=== PATIENT | female | born 1960 | race Caucasian/White ===

== ENCOUNTER 2019-04-09 04:09 | Inpatient (IN) | payer MEDICAID ==
[~2019-04-09] VITALS: Ht 167.6 cm; Wt 63.3 kg
[2019-04-09] VITALS (11 sets, daily range): BP systolic 120–137; BP diastolic 61–86
[2019-04-09 07:20] LABS: Eosinophils # (auto) 0 uL; Neutrophils # (auto) 8.8 uL
[2019-04-09 07:21] LABS: Basophils # (auto) 0.1 uL; Basophils % (auto) 0.5 % (0.0-2.0); Hematocrit 18.6 % (36.0-46.0); Lymphocytes # (auto) 1.7 uL; Lymphocytes % (auto) 15.4 % (10.0-50.0); Mean Corpuscular Hemoglobin 27.6 pg (28.0-32.0); Mean Corpuscular Hgb Conc. 33.5 g/dL (32.0-36.0); Mean Corpuscular Volume 82.2 fL (80.0-100.0); Monocytes # (auto) 0.6 uL; Neutrophils % (auto) 79.1 % (37.0-80.0); Platelet Count (auto) 414 10^3/uL (140-450); Red Blood Cells 2.27 10^6/uL (4.0-5.20); Red Cell Distribution Width 16.2 % (11.8-14.3); White Blood Cell 11.1 10^3/uL (4.4-10.8)
[2019-04-09 07:23] LABS: Hemoglobin 6.3 g/dL (12.2-16.2)
[2019-04-09 07:35] LABS: INR 1.09 (0.9-1.15); Partial Thromboplastin Time 23.4 sec (23.64-32.05)
[2019-04-09 07:41] LABS: Chloride 110 mmol/L (98-107); Potassium 4.2 mmol/L (3.5-5.1); Sodium 140 mmol/L (136-145)
[2019-04-09 07:47] LABS: Alanine Aminotransferase 12 U/L (13-56); Albumin 2.6 g/dL (3.4-5.0); Alkaline Phosphatase 60 U/L (45-117); Anion Gap 6 (5-15); Aspartate Aminotransferase 14 U/L (15-37); BUN/Creatinine Ratio 52.7; Bilirubin, Total < 0.1 mg/dL (0.2-1.0); Blood Urea Nitrogen 39 mg/dL (7-18); Calcium 7.4 mg/dL (8.5-10.1); Carbon Dioxide 24 mmol/L (21-32); GFR African American 103 mL/min; GFR Non-African American 85 mL/min; Glucose 90 mg/dL (74-106); Magnesium 2.1 mg/dL (1.6-2.6); Total Protein 5.7 g/dL (6.4-8.2)
[2019-04-09] MEDS ORDERED: SODIUM CHLORIDE 0.9% 1,000 ML IV ONE (07:48)
[2019-04-09] MEDS ORDERED: TETANUS-DIPTH-ACEL PERTUSSIS 0.5ML SYRG IM ONE (09:15)
[2019-04-09 11:16] LABS: Urine Bacteria NONE SEEN /hpf (None Seen); Urine Blood Negative /uL (Negative); Urine Specific Gravity 1.015 (1.001-1.035); Urine WBC <1 /hpf (0 - 5)
[2019-04-09] MEDS ORDERED: MORPHINE SULF INJ 2 MG/ML SYRINGE 1ML IV PRN (12:00)
[2019-04-09] MEDS ORDERED: NITROGLYCERIN 0.4 MG SL TAB SL PRN (12:00)
[2019-04-09] MEDS ORDERED: LACTULOSE 20Gm/30ML SOLN PO PRN (12:00)
[2019-04-09] MEDS: SODIUM CHLORIDE 0.9% 1,000 ML IV SCH ×2 (12:08→22:37)
[2019-04-09 12:48] LABS: CRP High Sensitivity 0.19 mg/dL (< 0.3)
[2019-04-09 13:28] LABS: Alcohol, Urine < 3.0 mg/dL (0-5); Amphetamine Screen, Urine POSITIVE (NEGATIVE); Barbiturate Scree,Urine NEGATIVE (NEGATIVE); Benzodiazephine Screen, Urine NEGATIVE (NEGATIVE); Cannabinoid Screen, Urine NEGATIVE (NEGATIVE); Cocaine Screen, Urine NEGATIVE (NEGATIVE); Opiate Scree,Urine NEGATIVE (NEGATIVE); Phencyclidine Screen, Urine NEGATIVE (NEGATIVE)
[2019-04-09 18:58] LABS: Hematocrit 22.9 % (36.0-46.0); Hemoglobin 7.5 g/dL (12.2-16.2)
[2019-04-09] MEDS: PANTOPRAZOLE 40 MG TAB PO SCH (22:37)
--- NOTE | 2019-04-09 23:30 | NUR ---
received pt from day rn poc reviewed
--- NOTE | 2019-04-09 23:57 | NUR ---
resting quietly and comfortable call light within reach,
[2019-04-10 00:57] LABS: Hematocrit 21.2 % (36.0-46.0); Hemoglobin 7.2 g/dL (12.2-16.2)
[2019-04-10 05:29] VITALS: BP 139/80
[2019-04-10] MEDS: SODIUM CHLORIDE 0.9% 1,000 ML IV SCH (06:41)
--- NOTE | 2019-04-10 07:13 | NUR ---
report given to am nurse poc reviewed
--- NOTE | 2019-04-10 08:05 | NUR ---
OPENING SHIFT NOTE ASSUMED CARE OF PT. PT IS AWAKE AND ALERT. NO SOB OR SIGNS OF DISTRESS NOTED. PT COMPLAINED ABOUT LIQUID DIET. PT MENTIONED POSSIBLY LEAVING AMA. EDUCATED ABOUT REASON FOR DIET. PT SAID SHE WOULD WAIT FOR GI CONSULT. INSTRUCTED PT ON POC AND TO CALL FOR HELP PRN. BED IN LOWEST POSITION WITH SIDE RAILS UP X2. WILL CONTINUE TO MONITOR.
[2019-04-10 09:00] VITALS: BP 147/87
[2019-04-10] MEDS: PANTOPRAZOLE 40 MG TAB PO SCH (12:10)
[2019-04-10 13:00] VITALS: BP 153/86
[2019-04-10 13:43] LABS: Basophils # (auto) 0 uL; Eosinophils # (auto) 0.1 uL
[2019-04-10 13:45] LABS: Basophils % (auto) 0.3 % (0.0-2.0); Eosinophils % (auto) 1.3 % (0.0-7.0); Hematocrit 23.3 % (36.0-46.0); Hemoglobin 7.9 g/dL (12.2-16.2); Lymphocytes % (auto) 21.8 % (10.0-50.0); Mean Corpuscular Hemoglobin 27.8 pg (28.0-32.0); Mean Corpuscular Hgb Conc. 33.7 g/dL (32.0-36.0); Mean Corpuscular Volume 82.4 fL (80.0-100.0); Monocytes # (auto) 0.7 uL; Monocytes % (auto) 7.6 % (0.0-12.0); Neutrophils # (auto) 6.5 uL; Platelet Count (auto) 419 10^3/uL (140-450); Red Blood Cells 2.83 10^6/uL (4.0-5.20); Red Cell Distribution Width 15.6 % (11.8-14.3); White Blood Cell 9.3 10^3/uL (4.4-10.8)
[2019-04-10 14:00] LABS: % Iron Saturation 4.7 % (15-50)
[2019-04-10] MEDS ORDERED: GOLYTELY 4L KIT PO ONE (14:00)
--- NOTE | 2019-04-10 16:30 | NUR ---
PT LEFT AMA REMOVED IV HERSELF. SIGNED AMA FORM. TELE UNIT SENT TO ICU.
== END 2019-04-10 16:30 | disposition left against medical advice (07) | DRG 115 ==
LOC: ER 04:09 → EDBD 04:09 → TELE-WESTW 04:10
PROVIDERS: ADMIT Internal Medicine; ATTEND Internal Medicine Nephrology
PROC: 30233N1 Transfusion of Nonautologous Red Blood Cells into Peripheral Vein, Percutaneous Approach (ICD-10-PCS; principal; 2019-04-09)
DX: S02.2XXA Fracture of nasal bones, initial encounter for closed fracture (principal); T79.7XXA Traumatic subcutaneous emphysema, initial encounter; E44.0 Moderate protein-calorie malnutrition; M48.02 Spinal stenosis, cervical region; D64.9 Anemia, unspecified; G89.29 Other chronic pain; K59.00 Constipation, unspecified; F15.10 Other stimulant abuse, uncomplicated; M19.90 Unspecified osteoarthritis, unspecified site; Z53.21 Procedure and treatment not carried out due to patient leaving prior to being seen by health care provider; F17.210 Nicotine dependence, cigarettes, uncomplicated; W18.39XA Other fall on same level, initial encounter; Z23 Encounter for immunization; Y93.89 Activity, other specified; Y92.091 Bathroom in other non-institutional residence as the place of occurrence of the external cause; Y99.8 Other external cause status; Z84.1 Family history of disorders of kidney and ureter; Z68.25 Body mass index [BMI] 25.0-25.9, adult; Z79.899 Other long term (current) drug therapy
CPT/HCPCS: 36415; 36430; 70450; 70486; 71045; 72125; 80053; 80307; 81001; 82378; 82550; 83540; 83550; 83735; 84443; 84484; 85014; 85018; 85025; 85045; 85610; 85652; 85730; 86141; 86850; 86900; 86901; 86920; 90471; 90715; 93005; 93306; 96360; 96361; G0378

== ENCOUNTER 2019-04-13 17:24 | Emergency (ER) | payer MEDICAID ==
[~2019-04-13] VITALS: Ht 167.6 cm; Wt 60.3 kg
[2019-04-13 18:13] LABS: Eosinophils # (auto) 0.2 uL; Monocytes # (auto) 0.5 uL; Neutrophils # (auto) 10.3 uL
[2019-04-13 18:14] LABS: Basophils # (auto) 0.1 uL; Eosinophils % (auto) 1.8 % (0.0-7.0); Hemoglobin 9.4 g/dL (12.2-16.2); Lymphocytes # (auto) 0.7 uL; Lymphocytes % (auto) 5.9 % (10.0-50.0); Mean Corpuscular Hemoglobin 26.7 pg (28.0-32.0); Mean Corpuscular Hgb Conc. 32.6 g/dL (32.0-36.0); Mean Corpuscular Volume 81.9 fL (80.0-100.0); Monocytes % (auto) 4.1 % (0.0-12.0); Neutrophils % (auto) 87.2 % (37.0-80.0); Nucleated Red Blood Cells % 0.1 %; Platelet Count (auto) 578 10^3/uL (140-450); Red Blood Cells 3.54 10^6/uL (4.0-5.20); White Blood Cell 11.8 10^3/uL (4.4-10.8)
[2019-04-13 18:21] LABS: Albumin 3.5 g/dL (3.4-5.0); Calcium 8.2 mg/dL (8.5-10.1); Potassium 3.9 mmol/L (3.5-5.1)
[2019-04-13 18:24] LABS: BUN/Creatinine Ratio 24.7; Bilirubin, Total 0.2 mg/dL (0.2-1.0); Total Protein 7.6 g/dL (6.4-8.2)
[2019-04-13] MEDS ORDERED: IOHEXOL 350 MG/ML 100ML IJ ONE (22:43)
[2019-04-13 23:31] LABS: Urine Bacteria FEW /hpf (None Seen); Urine Blood TRACE /uL (Negative); Urine Mucus FEW (None Seen); Urine Specific Gravity 1.024 (1.001-1.035); Urine WBC 5 /hpf (0 - 5)
[2019-04-13 23:38] LABS: Alcohol, Urine < 3.0 mg/dL (0-5); Amphetamine Screen, Urine POSITIVE (NEGATIVE); Barbiturate Scree,Urine NEGATIVE (NEGATIVE); Benzodiazephine Screen, Urine NEGATIVE (NEGATIVE); Cannabinoid Screen, Urine NEGATIVE (NEGATIVE); Cocaine Screen, Urine NEGATIVE (NEGATIVE); Opiate Scree,Urine NEGATIVE (NEGATIVE); Phencyclidine Screen, Urine NEGATIVE (NEGATIVE)
[2019-04-14] MEDS ORDERED: ONDANSETRON HCL 4 MG/2 ML VIAL IV ONE (01:30)
[2019-04-14 01:47] VITALS: BP 131/76
== END 2019-04-14 01:46 | disposition home or self-care (01) ==
LOC: ER 17:32
DX: D64.9 Anemia, unspecified (principal); R55 Syncope and collapse; N39.0 Urinary tract infection, site not specified; N18.9 Chronic kidney disease, unspecified; F17.210 Nicotine dependence, cigarettes, uncomplicated; F12.10 Cannabis abuse, uncomplicated
CPT/HCPCS: 36415; 71046; 71275; 80053; 80307; 81001; 84484; 85025; 85379; 93005; 96374; 99284; J2405; Q9967